=== PATIENT | male | born 1990 | race African-American/Black ===

== ENCOUNTER 2017-12-07 11:33 | Emergency (ER) | payer SELFPAY ==
[~2017-12-07] VITALS: Ht 157.5 cm; Wt 139.3 kg
--- NOTE | 2017-12-07 11:45 | NUR ---
L SIDED CHEST PAIN, SHARP, NON RADIATING SINCE LAST NIGHT. NAD NOTED, VSS, RESP EVEN AND UNLABORED, PT WAS PUT ON MONITOR, MD AT BS.
[2017-12-07 12:18] LABS: BASOPHILS # (AUTO) 0.1 /CMM (0.0-0.2); BASOPHILS % (AUTO) 2.1 % (0.0-2.0); EOSINOPHILS % (AUTO) 3.4 % (0.0-6.0); HEMATOCRIT 50 % (39-51); HEMOGLOBIN 16.5 g/dL (13.5-17.5); LYMPHOCYTES # (AUTO) 1.4 /CMM (0.8-4.8); MEAN CORPUSCULAR HEMOGLOBIN 31 PG (26.0-33.0); MEAN CORPUSCULAR HGB CONC 33 g/dl (31.0-36.0); MEAN CORPUSCULAR VOLUME 93 fL (80-96); MONOCYTES # (AUTO) 0.5 /CMM (0.1-1.30); MONOCYTES % (AUTO) 8.1 % (2.0-12.0); NEUTROPHILS # (AUTO) 3.8 /CMM (1.8-8.9); NEUTROPHILS % (AUTO) 62.4 % (43.0-81.0); PLATELET COUNT (AUTO) 260 /CMM (150-450); RDW COEFFICIENT OF VARIATION 14.5 (11.5-15.0); RED BLOOD CELL COUNT(AUTO) 5.39 MIL/uL (4.5-6.0)
[2017-12-07 12:29] LABS: CALCIUM, SERUM 9.2 mg/dL (8.5-10.1); CARBON DIOXIDE 29 mmol/L (21-32); CHLORIDE 104 mmol/L (98-107); GLUCOSE 111 mg/dL (74-106); POTASSIUM 4.2 mmol/L (3.5-5.1); SODIUM SERUM 138 mmol/L (136-145); UREA NITROGEN, BLOOD 12 mg/dL (7-18)
[2017-12-07 12:37] LABS: TROPONIN I < 0.017 ng/mL (0.00-0.056)
[2017-12-07 14:06] VITALS: BP 148/78
--- NOTE | 2017-12-07 14:06 | NUR ---
Patient discharged to home in stable condition. Written and verbal after care instructions given. Patient verbalizes understanding of instruction.
== END 2017-12-07 14:07 | disposition home or self-care (01) ==
LOC: ER 11:35
DX: R07.89 Other chest pain (principal); E66.9 Obesity, unspecified; F17.200 Nicotine dependence, unspecified, uncomplicated; Z68.43 Body mass index [BMI] 50.0-59.9, adult
CPT/HCPCS: 36415; 71045-TC; 80048-TC; 84484-TC; 85025-TC; 85378-TC; A4606; Z7610

== ENCOUNTER 2020-10-31 10:42 | Emergency (ER) | payer BC ==
[~2020-10-31] VITALS: Ht 177.8 cm; Wt 131.5 kg
--- NOTE | 2020-10-31 10:42 | NUR ---
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 PT IS AAOX4, NOT IN RESPIRATORY DISTRESS, V/S STABLE, KEPT RESTED AMD COMFORTABLE. WILL CONTINUE TO MONITOR.
--- NOTE | 2020-10-31 11:20 | NUR ---
SEEN AND EXAMINED BY .
[2020-10-31] MEDS ORDERED: MAG HYDROX/AL HYDROX/SIMETH 30 ML UDC PO ONE (11:30)
[2020-10-31] MEDS ORDERED: LIDOCAINE VISCOUS 2% UD 15 ML UDC MM ONE (11:30)
[2020-10-31] MEDS ORDERED: MAG HYDROX/AL HYDROX/SIMETH 30 ML UDC ONE (11:49)
[2020-10-31] MEDS ORDERED: LIDOCAINE VISCOUS 2% UD 15 ML UDC ONE (11:49)
--- NOTE | 2020-10-31 12:23 | NUR ---
Patient discharged to home in stable condition. Written and verbal after care instructions given. Patient verbalizes understanding of instruction.
[2020-10-31 12:24] VITALS: BP 122/74
== END 2020-10-31 12:24 | disposition home or self-care (01) ==
LOC: ER 10:44
DX: R10.13 Epigastric pain (principal); R07.89 Other chest pain; F17.200 Nicotine dependence, unspecified, uncomplicated
CPT/HCPCS: 36415; 71045-TC; 84484-TC

== ENCOUNTER 2023-02-20 16:47 | Emergency (ER) | payer BC ==
[~2023-02-20] VITALS: Ht 177.8 cm; Wt 97.5 kg
[2023-02-20] MEDS ORDERED: IV NS 0.9% 1,000 ML IV ONE (17:00)
[2023-02-20] MEDS ORDERED: ACETAMINOPHEN 325 MG TABLET PO ONE (17:00)
[2023-02-20 17:23] LABS: BASOPHILS % (AUTO) 0.2 % (0.0-2.0); EOSINOPHILS % (AUTO) 0.1 % (0.0-6.0); LYMPHOCYTES # (AUTO) 0.3 K/uL (0.8-4.8); LYMPHOCYTES % (AUTO) 3.7 % (20.0-44.0); MEAN CORPUSCULAR HEMOGLOBIN 32 PG (26.0-33.0); MEAN CORPUSCULAR HGB CONC 33 g/dl (31.0-36.0); MEAN CORPUSCULAR VOLUME 99 fL (80-96); MONOCYTES # (AUTO) 0.6 K/uL (0.1-1.30); MONOCYTES % (AUTO) 7.8 % (2.0-12.0); NEUTROPHILS # (AUTO) 7.3 K/uL (1.8-8.9); NEUTROPHILS % (AUTO) 88.2 % (43.0-81.0); PLATELET COUNT (AUTO) 257 K/uL (150-450); RED BLOOD CELL COUNT(AUTO) 6.02 MIL/uL (4.5-6.0); RED CELL DISTRIBUTION WIDTH 15.2 % (11.5-15.0); WHITE BLOOD COUNT (AUTO) 8.3 K/uL (4.3-11.0)
[2023-02-20] MEDS ORDERED: DIATR MEGLU/DIATRIZOATE SODIUM 30 ML BOTTLE (GASTROGRAPHIN) ONE (17:36)
[2023-02-20 17:39] LABS: BILIRUBIN,DIRECT 0.5 mg/dL (0.0-0.2); BILIRUBIN,TOTAL 2.8 mg/dL (0.2-1.0); CALCIUM, SERUM 9.3 mg/dL (8.5-10.1); CREATININE 1.4 mg/dL (0.6-1.3); TOTAL PROTEIN, SERUM 8.7 g/dL (6.4-8.2)
[2023-02-20] MEDS ORDERED: DIATR MEGLU/DIATRIZOATE SODIUM 120 ML BOTTLE (GASTROGRAPHIN) ONE (17:40)
[2023-02-20] MEDS ORDERED: ONDANSETRON HCL/PF 4 MG/2 ML VIAL ONE (17:47)
[2023-02-20] MEDS ORDERED: KETOROLAC TROMETHAMINE INJ 30 MG/ML VIAL ONE (17:48)
[2023-02-20] MEDS ORDERED: ACETAMINOPHEN 325 MG TABLET ONE (17:48)
[2023-02-20] MEDS ORDERED: KETOROLAC TROMETHAMINE INJ 30 MG/ML VIAL IV ONE (18:00)
[2023-02-20] MEDS ORDERED: ONDANSETRON HCL/PF - ER 4 MG/2 ML VIAL IV ONE (18:00)
[2023-02-20 18:02] LABS: HEMOGLOBIN 19.5 g/dL (13.5-17.5)
[2023-02-20 18:03] LABS: HEMATOCRIT 60 % (39-51)
[2023-02-20 18:24] LABS: APPEARANCE,URINE CLEAR (CLEAR); BILIRUBIN,URINE NEGATIVE (NEGATIVE); BLOOD, URINE NEGATIVE Ery/uL (NEGATIVE); COLOR,URINE YELLOW (YELLOW); KETONES,URINE NEGATIVE (NEGATIVE); LEUKOCYTE ESTERASE ,URINE NEGATIVE (NEGATIVE); NITRITE, URINE NEGATIVE (NEGATIVE); PH,URINE 5.5 (5.0-8.0); PROTEIN,URINE 1+ mg/dl (NEGATIVE); UGLUCOSE NEGATIVE (NEGATIVE); UROBILINOGEN,URINE 0.2 EU/dL (0.2)
[2023-02-20] MEDS ORDERED: IOHEXOL-300 100 ML VIAL IV ONE (18:28)
[2023-02-20] MEDS ORDERED: IV NS 0.9% 250 ML IV ONE (18:28)
[2023-02-20] MEDS ORDERED: CT SWABBABLE VALVE TRANS SET 1 EA INFUS.SET MC ONE (18:28)
[2023-02-20 18:32] LABS: ADD URINE CULTURE NO; BACTERIA,URINE None seen /HPF (None Seen); MUCUS,URINE Few /LPF (None Seen); RBC,URINE 0-2 /HPF (0-2); SQUAMOUS EPITHELIAL CELL,UR 0-2 /HPF (None Seen); URINE AMORPHOUS URATE Few /HPF (None Seen); WBC,URINE 0-2 /HPF (0-3)
[2023-02-20 18:37] LABS: ANISOCYTOSIS 1+; BAND % (MANUAL) 14 % (0.0-5.0); LYMPHOCYTES % (MANUAL) 4 % (16-48); MONOCYTES % (MANUAL) 7 % (0-11.0); MYELOCYTES % 9 % (0-0); NEUTROPHILS % (MANUAL) 62 (42-76); PLATELET ESTIMATE ADEQU; REACTIVE LYMPHOCYTES 4 % (0-0)
[2023-02-20 18:38] LABS: ROULEAUX 1+
[2023-02-20] MEDS ORDERED: ONDA4TAB5 PO (20:49)
[2023-02-20] MEDS ORDERED: NAPR-1164 PO (20:49)
[2023-02-20] MEDS ORDERED: CIPR500T5 PO (20:49)
[2023-02-20 22:14] VITALS: BP 125/60; TEMP 98.5; O2SAT 97
== END 2023-02-20 21:30 | disposition home or self-care (01) ==
LOC: ER 16:47
DX: R10.13 Epigastric pain (principal); F17.200 Nicotine dependence, unspecified, uncomplicated; Z20.822 Contact with and (suspected) exposure to COVID-19
CPT/HCPCS: 99285; 96374; 74160; 96361; 96375; 87426; 87804 ×2; 85025; 80048; 83690; 80076; 81001; 36415; 85007; J1885; J2405 ×2; J7050; Q9963; C9803; Q9967

== ENCOUNTER 2023-02-21 19:36 | Emergency (ER) | payer BC ==
[~2023-02-21] VITALS: Ht 177.8 cm; Wt 97.5 kg
[~2023-02-21 19:36] MED LIST: CIPR500T5 PO; NAPR-1164 PO; ONDA4TAB5 PO
[2023-02-21] MEDS ORDERED: CEFTRIAXONE 1GM BAG (ER ONLY) 50 ML IV ONE ×2 (22:44→23:00)
[2023-02-21] MEDS ORDERED: ONDANSETRON HCL/PF 4 MG/2 ML VIAL ONE (22:55)
[2023-02-21] MEDS ORDERED: MORPHINE SULFATE INJ 4 MG/ML DISP.SYRIN ONE (22:55)
[2023-02-21] MEDS ORDERED: IV NS 0.9% 1,000 ML BAG IV ONE (23:00)
[2023-02-21] MEDS ORDERED: ONDANSETRON HCL/PF 4 MG/2 ML VIAL IVP ONE (23:00)
[2023-02-21] MEDS ORDERED: METRONIDAZOLE 500MG/ NS 100ML 100 ML IV ONE (23:00)
[2023-02-21] MEDS ORDERED: MORPHINE SULFATE INJ 2 MG/ML DISP.SYRIN IV ONE (23:00)
[2023-02-21 23:03] LABS: BASOPHILS % (AUTO) 0.5 % (0.0-2.0); EOSINOPHILS % (AUTO) 0.3 % (0.0-6.0); HEMATOCRIT 56 % (39-51); HEMOGLOBIN 18.4 g/dL (13.5-17.5); LYMPHOCYTES # (AUTO) 0.6 K/uL (0.8-4.8); LYMPHOCYTES % (AUTO) 8.2 % (20.0-44.0); MEAN CORPUSCULAR HEMOGLOBIN 33 PG (26.0-33.0); MEAN CORPUSCULAR HGB CONC 33 g/dl (31.0-36.0); MEAN CORPUSCULAR VOLUME 99 fL (80-96); MONOCYTES # (AUTO) 0.7 K/uL (0.1-1.30); MONOCYTES % (AUTO) 9.9 % (2.0-12.0); NEUTROPHILS % (AUTO) 81.1 % (43.0-81.0); PLATELET COUNT (AUTO) 214 K/uL (150-450); RED BLOOD CELL COUNT(AUTO) 5.67 MIL/uL (4.5-6.0); RED CELL DISTRIBUTION WIDTH 15.3 % (11.5-15.0); WHITE BLOOD COUNT (AUTO) 7.4 K/uL (4.3-11.0)
[2023-02-21 23:19] LABS: INR 1.03 (0.91-1.10); PARTIAL THROMBOPLASTIN TIME 34.7 SEC (24.3-34.3); PROTHROMBIN TIME 10.9 SECS (9.2-11.1)
[2023-02-21 23:39] LABS: CALCIUM, SERUM 9.9 mg/dL (8.5-10.1); CREATININE 1.4 mg/dL (0.6-1.3); POTASSIUM 4.5 mmol/L (3.5-5.1)
[2023-02-21 23:57] LABS: ALBUMIN 3.4 g/dL (3.4-5.0); BILIRUBIN,DIRECT 0.3 mg/dL (0.0-0.2); BILIRUBIN,TOTAL 1.4 mg/dL (0.2-1.0); TOTAL PROTEIN, SERUM 7.9 g/dL (6.4-8.2)
[2023-02-22] MEDS ORDERED: IV NS 0.9% 1,000 ML IV ONE
[2023-02-22] MEDS ORDERED: NOREPINEPHRINE 8 MG in IV NS 0.9% 242 ML IV PRN (01:00)
[2023-02-22] MEDS ORDERED: HYDR-3980 PO (01:25)
[2023-02-22 01:34] VITALS: BP 114/79; TEMP 98.8; O2SAT 96
[2023-02-22] MEDS ORDERED: HYDR-4303 PO (01:45)
== END 2023-02-22 02:08 | disposition home or self-care (01) ==
LOC: ER 19:39
DX: K52.9 Noninfective gastroenteritis and colitis, unspecified (principal); Z60.2 Problems related to living alone
CPT/HCPCS: 99284; 96365; 96375; 96367; 87045; 85025; 80048; 83605; 83690; 80076; 36415; 89055; 85730; J2270; J2405; J7030; J0696

== ENCOUNTER 2023-12-25 21:56 | Emergency (ER) | payer BC ==
[~2023-12-25] VITALS: Ht 180.3 cm; Wt 93.0 kg
[~2023-12-25 21:56] MED LIST changes: +HYDR-4303 PO
[2023-12-25] MEDS ORDERED: METOCLOPRAMIDE HCL 10 MG/2 ML VIAL ONE (22:53)
[2023-12-25] MEDS: IV NS 0.9% 1,000 ML BAG IV ONE (23:05)
[2023-12-25] MEDS: METOCLOPRAMIDE HCL 10 MG/2 ML VIAL IV ONE (23:07)
[2023-12-25 23:09] LABS: BASOPHILS % (AUTO) 0.3 % (0.0-2.0); EOSINOPHILS # (AUTO) 0.1 K/uL (0.0-0.7); HEMATOCRIT 54 % (39-51); HEMOGLOBIN 17.5 g/dL (13.5-17.5); LYMPHOCYTES # (AUTO) 0.2 K/uL (0.8-4.8); MEAN CORPUSCULAR HEMOGLOBIN 32 PG (26.0-33.0); MEAN CORPUSCULAR HGB CONC 33 g/dl (31.0-36.0); MEAN CORPUSCULAR VOLUME 97 fL (80-96); MONOCYTES # (AUTO) 0.2 K/uL (0.1-1.30); MONOCYTES % (AUTO) 2.7 % (2.0-12.0); NEUTROPHILS # (AUTO) 8.6 K/uL (1.8-8.9); PLATELET COUNT (AUTO) 221 K/uL (150-450); RED BLOOD CELL COUNT(AUTO) 5.57 MIL/uL (4.5-6.0); RED CELL DISTRIBUTION WIDTH 15.1 % (11.5-15.0); WHITE BLOOD COUNT (AUTO) 9.1 K/uL (4.3-11.0)
[2023-12-25 23:21] LABS: CALCIUM, SERUM 9.1 mg/dL (8.5-10.1); CREATININE 1.1 mg/dL (0.6-1.3); POTASSIUM 4.2 mmol/L (3.5-5.1)
[2023-12-25 23:27] LABS: BILIRUBIN,DIRECT 0.3 mg/dL (0.0-0.2); BILIRUBIN,TOTAL 1.8 mg/dL (0.2-1.0); TOTAL PROTEIN, SERUM 8.2 g/dL (6.4-8.2)
[2023-12-26] MEDS: IV NS 0.9% 1,000 ML BAG IV ONE (00:52)
[2023-12-26] MEDS ORDERED: ONDA4TAB5 PO (01:37)
[2023-12-26 02:47] VITALS: BP 121/79; TEMP 99.1; O2SAT 99
== END 2023-12-26 02:48 | disposition home or self-care (01) ==
LOC: ER 22:02
DX: R11.2 Nausea with vomiting, unspecified (principal); R19.7 Diarrhea, unspecified; R68.83 Chills (without fever); F17.200 Nicotine dependence, unspecified, uncomplicated; Z87.19 Personal history of other diseases of the digestive system; Z60.2 Problems related to living alone
CPT/HCPCS: 99284; 96365; 85025; 80048; 83690; 80076; 36415; 96361; J2765; J7030